=== PATIENT | female | born 1955 ===

== ENCOUNTER 2018-02-27 14:35 | Emergency (ER) | payer SELFPAY ==
--- NOTE | 2018-02-27 15:05 | UC ---
Complaint Female HPI - HPI Summary HPI Summary: 62 y/o female presents to the urgent care c/o frequency and burning on urination for the past 3 days/ Pt reports she uses the estrogen vaginal cream for dryness. Pt has been drinking fluids. Pain is 4/10 associated w/ mild pelvic pain. Pt denies fever, flank pain, vaginal discharge, lower back pain, abdominal pain, N/v/d. Pt w/ PMHX of RA and states has been stress out lately. - History Of Current Complaint Chief Complaint: UCGU Stated Complaint: URINARY SYMPTOMS Time Seen by Provider: 02/27/18 15:03 Hx Obtained From: Patient Onset/Duration: Gradual Onset, Lasting Days - 3 days, Still Present, Worse Since - today Timing: Lasting Days - 3 days Severity Initially: Mild Severity Currently: Mild Pain Intensity: 3 Pain Scale Used: 0-10 Numeric Character: Burning Aggravating Factor(s): Urination Alleviating Factor(s): Nothing Associated Signs And Symptoms: Positive: Negative. Negative: Fever, Back Pain, Vaginal Discharge - Risk Factors Ectopic Risk Factor: Negative Ovarian Torsion Risk Factor: Negative - Allergies/Home Medications Allergies/Adverse Reactions: Allergies Allergy/AdvReac Type Severity Reaction Status Date / Time No Known Allergies Allergy Verified 02/27/18 14:39 Home Medications: Home Medications Hydroxychloroquine TAB* [Plaquenil TAB*] 200 mg PO DAILY 02/27/18 [History Confirmed 02/27/18] Levothyroxine TAB* [Synthroid 25 MCG TAB*] 02/27/18 [History Confirmed 02/27/18 ] Methotrexate* 0.8 ml INJ WEEKLY 02/27/18 [History Confirmed 02/27/18] PMH/Surg Hx/FS Hx/Imm Hx Previously Healthy: Yes Endocrine History: Hypothyroidism Other Endocrine History: RA - Surgical History Surgical History: Yes Surgery Procedure, Year, and Place: PILONIDAL CYST - Family History Known Family History: Positive: Hypertension - Social History Occupation: Unemployed Lives: With Family Alcohol Use: Occasionally Alcohol Amount: WINE Substance Use Type: None Smoking Status (MU): Never Smoked Tobacco Review of Systems All Other Systems Reviewed And Are Negative: Yes Constitutional: Positive: Negative Skin: Positive: Negative Eyes: Positive: Negative ENT: Positive: Negative Respiratory: Positive: Negative Cardiovascular: Positive: Negative Genitourinary: Positive: Dysuria, Frequency, Urgency Motor: Positive: Negative Neurovascular: Positive: Negative Musculoskeletal: Positive: Negative Neurological: Positive: Negative Psychological: Positive: Negative Is Patient Immunocompromised?: No Physical Exam - Summary Physical Exam Summary: VITAL SIGNS: Reviewed. GENERAL: Patient is a well developed and nourished obese female who is sitting comfortable in the examining table. Patient is not in any acute respiratory distress. HEAD AND FACE: No signs of trauma. No ecchymosis, hematomas or skull depressions. No sinus tenderness. EYES: PERRLA, EOMI x 2, No injected conjunctiva, clear watery eyes, no nystagmus. No photophobia. EARS: Hearing grossly intact. Ear canals and tympanic membranes are within normal limits. MOUTH: pharynx with no erythema, no exudates,no palatal petechiae. no B/L tonsillar enlargement Uvula in midline. NECK: Supple, trachea is midline, no lymphadenopathy, no JVD, no carotid bruit, no c-spine tenderness, neck with full ROM. CHEST: Symmetric, no tenderness at palpation LUNGS: Clear to auscultation bilaterally. No wheezing or crackles. CVS: Regular rate and rhythm, S1 and S2 present, no murmurs or gallops appreciated. ABDOMEN: Soft, non-tender. No signs of distention. No rebound no guarding, and no masses palpated. Bowel sounds are normal. BACK:no scoliosis or lesions, non tender to palpation, No B/L CVA tenderness EXTREMITIES: FROM in all major joints, no edema, no cyanosis or clubbing. NEURO: Alert and oriented x 3. No acute neurological deficits. Speech is normal and follows commands. SKIN: Dry and warm Triage Information Reviewed: Yes Vital Signs: Initial Vital Signs Temp 97.5 F 02/27/18 14:36 Pulse 73 02/27/18 14:36 Resp 16 02/27/18 14:36 BP 144/75 02/27/18 14:36 Pulse Ox 100 02/27/18 14:36 Complaint Female Dx - Course Course Of Treatment: 62 y/o female presents to the urgent care c/o frequency and burning on urination for the past 3 days/ Pt reports she uses the estrogen vaginal cream for dryness. Pt has been drinking fluids. Pain is 4/10 associated w/ mild pelvic pain. Pt denies fever, flank pain, vaginal discharge, lower back pain, abdominal pain, N/v/d. Hx obtained. Pt w/ PMHX of RA and states has been stress out lately. Hx obtained. PE:WNL. UA ordered. UA results: Leukoesterase 1+. Pt Rx Keflex 500mg PO x 7 days. Pyridium 100mg PO TID x 2 days. Advised to increase fluid intake. Urine sent for culture if any abnormality Pt will be notified for further treatment. Pt advised If symptoms do not improve to return to the urgent care or f/u with PCP. Pt's BP is elevated today advised to decrease salt in diet, monitor BP and f/u with PCP for further management. Pt understood and agreed. Left the clinic ambulating. - Differential Dx/Diagnosis Differential Diagnosis/HQI/PQRI: Cervicitis, Renal Colic, Ureteral Stone, Urinary Tract Infection Provider Diagnosis: UTI (urinary tract infection), Dysuria, Elevated BP without diagnosis of hypertension Discharge - Sign-Out/Discharge Documenting (check all that apply): Patient Departure - d/c home All imaging exams completed and their final reports reviewed: No Studies - Discharge Plan Condition: Stable Disposition: HOME Prescriptions: Cephalexin CAP* [Keflex CAP*] 500 mg PO BID #14 cap Phenazopyridine TAB* [Pyridium 100 mg TAB*] 100 mg PO TID #6 tab Patient Education Materials: Urinary Tract Infection in Women (ED), Low-Sodium Diet (ED) Referrals: [facility] [Outside] - 3 Days Additional Instructions: 1- Please take Keflex PO x 7 days. Pyridium 100 mg PO TID x 2 days to alleviate urinary symptoms. Increase increase fluid intake. drink cranberry juice. 2-Urine sent for culture if any abnormality, you will be notified for further treatment. 3-If symptoms do not improve please return to the urgent care or f/u with PCP in 3 days for further evaluation and treatment. 4- Your BP is elevated today. please decrease salt in your diet, monitor BP and if it continues to be elevated please f/u with your PCP for further management - Billing Disposition and Condition Condition: STABLE Disposition: Home
== END 2018-02-27 15:50 | disposition home or self-care (01) ==
LOC: UCEAST 14:35
DX: N39.0 Urinary tract infection, site not specified (principal); R30.0 Dysuria; R03.0 Elevated blood-pressure reading, without diagnosis of hypertension
CPT/HCPCS: 81003; 87086; 99202; G0463

== ENCOUNTER 2018-03-04 09:49 | Emergency (ER) | payer OTHER ==
--- NOTE | 2018-03-04 10:15 | UC ---
Complaint Female HPI - HPI Summary HPI Summary: 62 yo female presents with urinary/vaginal irritation for the last 1.5 weeks. She tells me that she has a history of vaginal dryness and takes vagifem, but also gets UTIs frequently and is unsure which she has. She was seen about a week ago and treated for a UTI with keflex. Her urine culture was negative and her symptoms have not changed. She is from [place] and says that when this dryness is irritating like this - she used [id number] with good relief from her doctor there. Denies fever, abdominal pain, n/v, flank pain, or vaginal discharge. - History Of Current Complaint Chief Complaint: UCGU Stated Complaint: URINARY ISSUE Time Seen by Provider: 03/04/18 10:08 Hx Obtained From: Patient Onset/Duration: Gradual Onset Timing: Constant Severity Initially: Mild Severity Currently: Moderate Pain Intensity: 5 Pain Scale Used: 0-10 Numeric - Allergies/Home Medications Allergies/Adverse Reactions: Allergies Allergy/AdvReac Type Severity Reaction Status Date / Time No Known Allergies Allergy Verified 03/04/18 10:04 PMH/Surg Hx/FS Hx/Imm Hx - Additional Past Medical History Additional PMH: Vaginal atrophy Endocrine History: Hypothyroidism - Surgical History Surgical History: Yes Surgery Procedure, Year, and Place: PILONIDAL CYST - Family History Known Family History: Positive: Hypertension - Social History Lives: With Family Alcohol Use: Occasionally Alcohol Amount: WINE Substance Use Type: None Smoking Status (MU): Never Smoked Tobacco Review of Systems All Other Systems Reviewed And Are Negative: Yes Constitutional: Positive: Negative Skin: Positive: Negative Respiratory: Positive: Negative Cardiovascular: Positive: Negative Gastrointestinal: Positive: Negative Genitourinary: Positive: Vaginal/Penile Itching Neurovascular: Positive: Negative Neurological: Positive: Negative Psychological: Positive: Negative Physical Exam - Summary Physical Exam Summary: GENERAL: NAD. WDWN. No pain distress. SKIN: No streaking, bleeding, or drainage. NECK: Supple. Nontender. No lymphadenopathy. CHEST: No accessory muscle use. Breathing comfortably and in no distress. CV: Pulses intact. Cap refill <2seconds NEURO: Alert. PSYCH: Age appropriate behavior. Triage Information Reviewed: Yes Vital Signs: Initial Vital Signs Temp 97.9 F 03/04/18 10:00 Pulse 72 03/04/18 10:00 Resp 18 03/04/18 10:00 BP 140/78 03/04/18 10:00 Pulse Ox 98 03/04/18 10:00 Vital Signs Reviewed: Yes Complaint Female Dx - Course Course Of Treatment: She declined exam today stating that she is familiar with her symptoms and just needed to know if it was a UTI or her dryness. - Differential Dx/Diagnosis Provider Diagnosis: Vaginal dryness Discharge - Sign-Out/Discharge Documenting (check all that apply): Patient Departure All imaging exams completed and their final reports reviewed: No Studies - Discharge Plan Condition: Stable Disposition: HOME Prescriptions: Estradiol VAGINAL TAB(NF) [Vagifem] 10 mcg VAGINAL DAILY #14 vag.tab Patient Education Materials: Vaginal Atrophy (ED) Referrals: No Primary Care Phys,NOPCP [Primary Care Provider] - Additional Instructions: If you develop a fever, shortness of breath, chest pain, new or worsening symptoms - please call your PCP or go to the ED. Your blood pressure was mildly elevated at todays visit. Please see your primary provider within 4 weeks for recheck and re-evaluation. - Billing Disposition and Condition Condition: STABLE Disposition: Home
--- NOTE | 2018-03-05 17:24 | UC ---
- Progress Note Progress Note: 03/05/2018 Urine culture no growth. No change Bia Bazan PA-C Course/Dx - Diagnoses Provider Diagnoses: Vaginal dryness Discharge - Sign-Out/Discharge Documenting (check all that apply): Patient Departure - D/C home All imaging exams completed and their final reports reviewed: No Studies - Discharge Plan Condition: Stable Disposition: HOME Prescriptions: Estradiol VAGINAL TAB(NF) [Vagifem] 10 mcg VAGINAL DAILY #14 vag.tab Patient Education Materials: Vaginal Atrophy (ED) Referrals: No Primary Care Phys,NOPCP [Primary Care Provider] - Additional Instructions: If you develop a fever, shortness of breath, chest pain, new or worsening symptoms - please call your PCP or go to the ED. Your blood pressure was mildly elevated at todays visit. Please see your primary provider within 4 weeks for recheck and re-evaluation. - Billing Disposition and Condition Condition: STABLE Disposition: Home
== END 2018-03-04 10:37 | disposition home or self-care (01) ==
LOC: UCEAST 09:49
DX: N89.8 Other specified noninflammatory disorders of vagina (principal); Z87.440 Personal history of urinary (tract) infections
CPT/HCPCS: 81003; 87086; 99212; G0463